=== PATIENT | male | born 1950 | race Caucasian/White ===

== ENCOUNTER 2018-11-27 12:34 | Outpatient (CLI) | payer MEDICARE ==
[2018-11-27] MEDS ORDERED: TESTOSTERONE IM (13:38)
[2018-11-27] MEDS ORDERED: LORA1TAB PO (13:38)
[2018-11-27] MEDS ORDERED: TERA10CA3 PO (13:38)
[2018-11-27] MEDS ORDERED: BACL-19 PO (13:38)
[2018-11-27] MEDS ORDERED: HYDR-3307 PO (13:38)
[2018-11-27] MEDS ORDERED: TADA5TAB2 PO (13:38)
[2018-11-27 13:58] LABS: MICROSCOPIC NOT IND
[2018-11-27 14:01] LABS: INTERNATIONAL NORMALIZED RATIO 1.08 (0.93-1.1); PROTHROMBIN TIME 11.3 Seconds (9.6-11.5)
[2018-11-27 14:03] LABS: ANION GAP 5 mmol/L (5-15); CALCIUM 9.1 mg/dL (8.5-10.1); CHLORIDE 108 mmol/L (98-107); CREATININE 1.61 mg/dL (0.7-1.3)
[2018-11-27 14:49] LABS: MEAN CORPUSCULAR HGB CONC 33.8 g/dL (33.2-36.2); MEAN CORPUSCULAR VOLUME 94.6 fL (81-97); PLATELET COUNT 64 x10^3/uL (130-400); RED BLOOD COUNT 5.58 x10^6/uL (4.38-5.82); RED CELL DISTRIBUTION WIDTH 15.1 % (9.4-14.8)
[2018-11-27 14:52] LABS: BASOPHILS # (AUTO) 0.03 x10^3/uL (0-0.1); BASOPHILS % (AUTO) 1 % (0-1); EOSINOPHILS # (AUTO) 0.06 x10^3/uL (0-0.4); EOSINOPHILS % (AUTO) 1 % (1-7); LYMPHOCYTES # (AUTO) 0.77 x10^3/uL (1-3.4); LYMPHOCYTES % (AUTO) 15 % (22-44); MD MORPH REVIEW ONLY; MONOCYTES # (AUTO) 0.51 x10^3/uL (0.2-0.8); MONOCYTES % (AUTO) 10 % (2-9); NEUTROPHILS # (AUTO) 3.82 x10^3/uL (1.8-6.8); NEUTROPHILS % (AUTO) 74 % (42-75)
[2018-11-27 14:56] LABS: <PLATELET ESTIMATE> DECREASED; ANISOCYTOSIS 1+; LARGE PLATELETS 1+
[2018-11-27 14:57] LABS: CULTURE INDICATED? NO
[2018-11-27 15:53] LABS: HEMOGLOBIN A1C 5.6 % (4.2-6.3)
== END 2018-11-27 23:59 | disposition home or self-care (01) ==
LOC: STAR 12:34
PROVIDERS: ATTEND Orthopaedic Surgery
DX: T84.84XS Pain due to internal orthopedic prosthetic devices, implants and grafts, sequela (principal); X58.XXXS Exposure to other specified factors, sequela; Z96.652 Presence of left artificial knee joint; R79.89 Other specified abnormal findings of blood chemistry; Z01.818 Encounter for other preprocedural examination
CPT/HCPCS: 36415; 80048; 81003; 83036; 85025; 85610; 85730; 87081; 87806; 93005; G0475

== ENCOUNTER 2018-12-01 06:31 | Inpatient (IN) | payer MEDICARE ==
[~2018-12-01] VITALS: Ht 170.2 cm; Wt 85.4 kg
[~2018-12-01 06:31] MED LIST: BACL-19 PO; EPINEPHRINE 1 MG/ML, 1ML ONE; HYDR-3307 PO; KETOROLAC 60 MG/2 ML ONE; LORA1TAB PO; ROPIvacaine/PF 0.2%, 20 ML ONE; SODIUM CHLORIDE 0.9% 50 ML ONE; TADA5TAB2 PO; TERA10CA3 PO; TESTOSTERONE IM; TRANEXAMIC ACID 100 MG/ML, 10ML ONE
[2018-12-01] MEDS ORDERED: MIDAZOLAM 1 MG/ML, 2ML ONE (11:38)
[2018-12-01] MEDS ORDERED: FENTANYL PF 250 MCG/5ML ONE (11:38)
[2018-12-01] MEDS ORDERED: VANCOMYCIN PER PHARMACY MC ONE (12:22)
[2018-12-01] MEDS ORDERED: LACTATED RINGERS 1,000 ML IV SCH (12:22)
[2018-12-01] MEDS ORDERED: VANCOMYCIN 1,500 MG in SODIUM CHLORIDE 0.9% 250 ML IV ONE (12:30)
[2018-12-01] MEDS ORDERED: MORPHINE SULFATE 4 MG/ML, 1ML IVPush PRN (13:00)
[2018-12-01] MEDS ORDERED: HYDROmorphone 1 MG/ML, 1ML INJ IVPush PRN (13:00)
[2018-12-01] MEDS ORDERED: ALUMINUM/MAG/SIMETHICONE 30 ML UDC PO PRN (13:00)
[2018-12-01] MEDS ORDERED: SENNA/DOCUSATE TABLET PO PRN (13:00)
[2018-12-01] MEDS ORDERED: POLYETHYLENE GLYCOL 17 GM PACKET PO PRN (13:00)
[2018-12-01] MEDS ORDERED: ONDANSETRON 2MG/ML, 2ML IV PRN (13:00)
[2018-12-01] MEDS ORDERED: PROPOFOL 10 MG/ML, 20ML ONE (13:00)
[2018-12-01] MEDS ORDERED: ONDANSETRON 2MG/ML, 2ML ONE (13:00)
[2018-12-01] MEDS ORDERED: NEOSTIGMINE 1 MG/ML, 10ML ONE (13:00)
[2018-12-01] MEDS ORDERED: DEXAMETHASONE 4 MG/ML, 1ML IVPush SCH (13:00)
[2018-12-01] MEDS ORDERED: BISACODYL 10 MG SUPP PR PRN (13:00)
[2018-12-01] MEDS ORDERED: PROMETHAZINE 25 MG/ML, 1ML IM PRN (13:00)
[2018-12-01] MEDS ORDERED: ROCURONIUM 10MG/ML,5ML ONE (13:00)
[2018-12-01] MEDS ORDERED: CEFAZOLIN 1,000 MG ONE (13:00)
[2018-12-01] MEDS ORDERED: SCOPOLAMINE PATCH, 1.5MG PATCH.TD72 TD SCH (13:00)
[2018-12-01] MEDS ORDERED: PROMETHAZINE 12.5 MG SUPP PR PRN (13:00)
[2018-12-01] MEDS ORDERED: ACETAMINOPHEN 650 MG/20.3 ML UDC PO PRN (13:00)
[2018-12-01] MEDS ORDERED: PSYLLIUM PACKET PO PRN (13:00)
[2018-12-01] MEDS ORDERED: MAGNESIUM HYDROXIDE 8%, 30ML UDC PO PRN (13:00)
[2018-12-01] MEDS ORDERED: DIPHENHYDRAMINE 50 MG CAPSULE PO PRN (13:00)
[2018-12-01] MEDS ORDERED: DEXAMETHASONE 4 MG/ML, 1ML ONE (13:00)
[2018-12-01] MEDS ORDERED: GLYCOPYRROLATE 0.2MG/1ML, 5ML ONE (13:00)
[2018-12-01] MEDS ORDERED: TRANEXAMIC ACID 1,000 MG in SODIUM CHLORIDE 0.9% 100 ML IVPB ONE (13:00)
[2018-12-01] MEDS ORDERED: ACETAMINOPHEN 325 MG TABLET PO PRN ×2 (13:00→16:00)
[2018-12-01] MEDS ORDERED: ONDANSETRON 4 MG TABLET PO PRN (13:00)
[2018-12-01] MEDS ORDERED: FENTANYL PF 100 MCG/2ML ONE (15:32)
[2018-12-01] MEDS ORDERED: HYDROmorphone 2 MG/ML, 1ML ONE (15:33)
[2018-12-01] MEDS ORDERED: OXYcodone 5 MG/5 ML ORAL.SOL UDC ONE (15:33)
[2018-12-01] MEDS: FENTANYL PF 100 MCG/2ML IV PRN ×2 (15:36→15:43)
[2018-12-01] MEDS: HYDROmorphone 2 MG/ML, 1ML IVPush PRN ×2 (15:41→15:47)
[2018-12-01] MEDS ORDERED: PROMETHAZINE 25 MG/ML, 1ML IV PRN (16:00)
[2018-12-01] MEDS ORDERED: DIAZEPAM 5 MG/ML, 2ML IVPush PRN (16:00)
[2018-12-01] MEDS ORDERED: BUPIVACAINE INJ ONE (16:00)
[2018-12-01] MEDS ORDERED: ALBUTEROL SULFATE 2.5 MG/3 ML NPPB PRN (16:00)
[2018-12-01] MEDS ORDERED: OXYcodone 5 MG/5 ML ORAL.SOL UDC PO PRN (16:00)
[2018-12-01] MEDS ORDERED: SODIUM CHLORIDE 0.9% INJ ONE (16:00)
[2018-12-01] MEDS ORDERED: hydrALAzine 20 MG/ML, 1ML IV PRN ×2 (16:00→18:30)
[2018-12-01] MEDS ORDERED: MEPERIDINE/PF 25MG/0.5ML IVPush PRN (16:00)
[2018-12-01] MEDS ORDERED: LABETALOL 5MG/ML, 20ML IV PRN (16:00)
[2018-12-01] MEDS: KETOROLAC 30 MG/1 ML IV SCH (18:21)
[2018-12-01] MEDS: D5%-0.45NACL+KCL 20MEQ 1,000 ML IV SCH (18:22)
[2018-12-01 20:12] VITALS: BP 128/78
[2018-12-01] MEDS: GABAPENTIN 300 MG CAPSULE PO SCH (21:30)
[2018-12-01] MEDS: CEFAZOLIN PMX 1GM/50ML 50 ML IVPB SCH (21:30)
[2018-12-01] MEDS: OXYcodone IR 5MG TABLET PO PRN (21:30)
[2018-12-01] MEDS: DOCUSATE 100 MG CAPSULE PO SCH (21:30)
[2018-12-01 23:38] VITALS: BP 127/79
[2018-12-02] MEDS: OXYcodone IR 5MG TABLET PO PRN ×3 (01:36→12:53)
[2018-12-02] MEDS: KETOROLAC 30 MG/1 ML IV SCH ×2 (02:20→10:56)
[2018-12-02] MEDS: D5%-0.45NACL+KCL 20MEQ 1,000 ML IV SCH (03:30)
[2018-12-02 03:31] VITALS: BP 111/72
[2018-12-02] MEDS ORDERED: BACLOFEN 10 MG TABLET PO PRN (04:30)
[2018-12-02] MEDS ORDERED: LORAZEPAM MC SCH (04:30)
[2018-12-02] MEDS ORDERED: LORA1TAB PO (05:21)
[2018-12-02] MEDS ORDERED: LORazepam 1MG TABLET PO PRN (05:30)
[2018-12-02] MEDS: CEFAZOLIN PMX 1GM/50ML 50 ML IVPB SCH (05:36)
[2018-12-02] MEDS: ASPIRIN 81 MG TABLET EC PO SCH ×2 (05:37→08:02)
[2018-12-02] MEDS ORDERED: DEXAMETHASONE 4 MG/ML, 1ML IVPush ONE (06:00)
[2018-12-02 07:57] VITALS: BP 128/79
[2018-12-02] MEDS: GABAPENTIN 300 MG CAPSULE PO SCH (08:00)
[2018-12-02] MEDS: DOCUSATE 100 MG CAPSULE PO SCH (08:01)
[2018-12-02] MEDS ORDERED: GABA300C10 PO (08:26)
[2018-12-02] MEDS ORDERED: ASPI81TA45 PO (08:27)
[2018-12-02] MEDS ORDERED: TERAZOSIN 5MG CAPSULE PO SCH (09:00)
== END 2018-12-02 13:27 | disposition home or self-care (01) | DRG 468 ==
LOC: ORIP 12:13 → 4NOR 17:16 → DCLOUNGE 12-02 13:15
PROVIDERS: ADMIT Orthopaedic Surgery; ATTEND Orthopaedic Surgery
PROC: 0SRD069 Replacement of Left Knee Joint with Oxidized Zirconium on Polyethylene Synthetic Substitute, Cemented, Open Approach (ICD-10-PCS; 2018-12-01)
PROC: 3E0T3BZ Introduction of Anesthetic Agent into Peripheral Nerves and Plexi, Percutaneous Approach (ICD-10-PCS; 2018-12-01)
PROC: 5A09357 Assistance with Respiratory Ventilation, Less than 24 Consecutive Hours, Continuous Positive Airway Pressure (ICD-10-PCS; 2018-12-01)
PROC: 0SPD0JZ Removal of Synthetic Substitute from Left Knee Joint, Open Approach (ICD-10-PCS; principal; 2018-12-01 14:00)
DX: T84.033A Mechanical loosening of internal left knee prosthetic joint, initial encounter (principal); Y79.2 Prosthetic and other implants, materials and accessory orthopedic devices associated with adverse incidents; G89.29 Other chronic pain; Y92.89 Other specified places as the place of occurrence of the external cause; Y93.89 Activity, other specified
CPT/HCPCS: 36415; 85014; 85018; C1713; G0378; J0171; J0690; J1100; J1170; J1885; J2250; J2405; J2704; J2710; J2795; J3010; C1776; J3480; J7120